=== PATIENT | female | born 1995 | race Caucasian/White ===

== ENCOUNTER 2018-05-10 18:30 | Emergency (ER) | payer SELFPAY ==
[2018-05-10 18:47] VITALS: BP 111/72
== END 2018-05-10 22:13 | disposition left against medical advice (07) ==
LOC: ED 18:30
DX: T24.001A Burn of unspecified degree of unspecified site of right lower limb, except ankle and foot, initial encounter (principal); Z53.21 Procedure and treatment not carried out due to patient leaving prior to being seen by health care provider